=== PATIENT | female | born 2000 | race American Indian/Alaskan Native ===

== ENCOUNTER 2021-07-29 18:36 | Emergency (ER) | payer SELFPAY ==
[2021-07-29 19:10] LABS: HCG Qualitative,Urine Negative (Negative)
[2021-07-29 19:12] LABS: Bilirubin,Urine NEG (Negative); Blood,Urine MOD (Negative); Color,Urine Yellow (Yellow); Mucus,Urine FEW /HPF; Protein,Urine <15 mg/dL mg/dL (Negative); Urobilinogen,Urine < 2.0 mg/dL (<2.0)
[2021-07-29 19:35] LABS: Basophils # (Auto) 0.1 K/mm3 (0.0-0.1); Basophils % (Auto) 1.4 % (0.0-1.8); Eosinophils % (Auto) 0.3 % (0.0-4.3); Hematocrit 42.1 % (30.3-42.9); Hemoglobin 13.2 gm/dl (10.1-14.3); Lymphocytes # (Auto) 1.4 K/mm3 (1.2-5.4); Lymphocytes % (Auto) 14.7 % (13.4-35.0); Mean Corpuscular HGB Conc 31 % (30-34); Mean Corpuscular Volume 85 fl (79-97); Monocytes # (Auto) 0.4 K/mm3 (0.0-0.8); Monocytes % (Auto) 4.6 % (0.0-7.3); Platelet Count 219 K/mm3 (140-440); Red Blood Count 4.96 M/mm3 (3.65-5.03); Red Cell Distribution Width 14.3 % (13.2-15.2)
--- NOTE | 2021-07-29 19:41 | Emergency Department Report ---
ED General Adult HPI - General Chief complaint: Abdominal Pain Stated complaint: BAD STOMACH PAIN AND DIARRHEA Time Seen by Provider: 07/29/21 19:02 Source: patient Mode of arrival: Ambulatory Limitations: No Limitations - History of Present Illness Initial comments: Patient presents to the emergency department the chief complaint of diarrhea and abdominal cramping that started today. Patient denies any blood in the stool and also denies any nausea vomiting. 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 Patient states that a couple days ago she ate some meatballs and is concerned that this may have caused her diarrhea. She denies any lucas abdominal pain, chest pain, shortness of breath. There is no blood in the stool. -: Sudden Severity scale (0 -10): 1 Quality: other (Cramping) Consistency: constant Improves with: none Worsens with: none Associated Symptoms: denies other symptoms Treatments Prior to Arrival: none - Related Data Previous Rx's Medication Instructions Recorded Last Taken Type Loperamide HCl [Imodium A-D] 2 mg PO BID #10 capsule 07/29/21 Unknown Rx Promethazine [Phenergan TAB] 25 mg PO Q6HR PRN #20 tab 07/29/21 Unknown Rx Allergies Allergy/AdvReac Type Severity Reaction Status Date / Time No Known Allergies Allergy Unverified 07/29/21 18:50 ED Review of Systems ROS: Stated complaint: BAD STOMACH PAIN AND DIARRHEA Other details as noted in HPI Comment: All other systems reviewed and negative Constitutional: denies: chills, fever Eyes: denies: eye pain, eye discharge, vision change ENT: denies: ear pain, throat pain Respiratory: denies: cough, shortness of breath, wheezing Cardiovascular: denies: chest pain, palpitations Endocrine: no symptoms reported Gastrointestinal: abdominal pain, diarrhea. denies: nausea Genitourinary: denies: urgency, dysuria, discharge Musculoskeletal: denies: back pain, joint swelling, arthralgia Skin: denies: rash, lesions Neurological: denies: headache, weakness, paresthesias Psychiatric: denies: anxiety, depression Hematological/Lymphatic: denies: easy bleeding, easy bruising ED Past Medical Hx - Past Medical History Previous Medical History?: No - Surgical History Past Surgical History?: No - Medications Home Medications: Home Medications Medication Instructions Recorded Confirmed Last Taken Type Loperamide HCl [Imodium A-D] 2 mg PO BID #10 capsule 07/29/21 Unknown Rx Promethazine [Phenergan TAB] 25 mg PO Q6HR PRN #20 tab 07/29/21 Unknown Rx ED Physical Exam - General Limitations: No Limitations General appearance: alert, in no apparent distress - Head Head exam: Present: atraumatic, normocephalic - Eye Eye exam: Present: normal appearance, PERRL, EOMI - ENT ENT exam: Present: mucous membranes moist - Neck Neck exam: Present: normal inspection - Respiratory Respiratory exam: Present: normal lung sounds bilaterally. Absent: respiratory distress - Cardiovascular Cardiovascular Exam: Present: regular rate, normal rhythm. Absent: systolic murmur, diastolic murmur, rubs, gallop - GI/Abdominal GI/Abdominal exam: Present: soft, normal bowel sounds. Absent: distended, te nderness - Extremities Exam Extremities exam: Present: normal inspection - Back Exam Back exam: Present: normal inspection - Neurological Exam Neurological exam: Present: alert, oriented X3, CN II-XII intact. Absent: motor sensory deficit - Psychiatric Psychiatric exam: Present: normal affect, normal mood - Skin Skin exam: Present: warm, dry, intact, normal color. Absent: rash ED Course Vital Signs 07/29/21 18:51 Temperature 98.3 F Pulse Rate 134 H Respiratory 16 Rate Blood Pressure 155/81 [Right] O2 Sat by Pulse 100 Oximetry ED Medical Decision Making - Lab Data Result diagrams: 07/29/21 19:20 07/29/21 19:20 Lab Results 07/29/21 07/29/21 07/29/21 Range/Units 19:20 19:20 Unknown WBC 9.4 (4.5-11.0) K/mm3 RBC 4.96 (3.65-5.03) M/mm3 Hgb 13.2 (10.1-14.3) gm/dl Hct 42.1 (30.3-42.9) % MCV 85 (79-97) fl MCH 27 L (28-32) pg MCHC 31 (30-34) % RDW 14.3 (13.2-15.2) % Plt Count 219 (140-440) K/mm3 Lymph % (Auto) 14.7 (13.4-35.0) % [place] % (Auto) 4.6 (0.0-7.3) % Eos % (Auto) 0.3 (0.0-4.3) % Baso % (Auto) 1.4 (0.0-1.8) % Lymph # (Auto) 1.4 (1.2-5.4) K/mm3 [place] # (Auto) 0.4 (0.0-0.8) K/mm3 Eos # (Auto) 0.0 (0.0-0.4) K/mm3 Baso # (Auto) 0.1 (0.0-0.1) K/mm3 Seg Neutrophils % 79.0 H (40.0-70.0) % Seg Neutrophils # 7.4 (1.8-7.7) K/mm3 Sodium 139 (137-145) mmol/L Potassium 4.5 (3.6-5.0) mmol/L Chloride 102.9 (98-107) mmol/L Carbon Dioxide 21 L (22-30) mmol/L Anion Gap 20 mmol/L BUN 15 (7-17) mg/dL Creatinine 0.7 (0.6-1.2) mg/dL Estimated GFR > 60 ml/min BUN/Creatinine Ratio 21 % Glucose 95 (65-100) mg/dL Calcium 9.8 (8.4-10.2) mg/dL Urine Color Yellow (Yellow) Urine Turbidity Clear (Clear) Urine pH 6.0 (5.0-7.0) Ur Specific [place] 1.018 (1.003-1.030) Urine Protein <15 mg/dl (Negative) mg/dL Urine Glucose (UA) Neg (Negative) mg/dL Urine Ketones Neg (Negative) mg/dL Urine Blood Mod (Negative) Urine Nitrite Neg (Negative) Ur Reducing Substances Not Reportable Urine Bilirubin Neg (Negative) Urine Ictotest Not Reportable Urine Urobilinogen < 2.0 (<2.0) mg/dL Ur Leukocyte Esterase Neg (Negative) Urine WBC (Auto) 1.0 (0.0-6.0) /HPF Urine RBC (Auto) 7.0 (0.0-6.0) /HPF U Epithel Cells (Auto) 1.0 (0-13.0) /HPF Urine Mucus Few /HPF Urine HCG, Qual Negative (Negative) - Medical Decision Making There is documentation of the patient's heart rate is 134 bpm but on my exam upon auscultation the patient's heart rate is 80 bpm Critical care attestation.: If time is entered above; I have spent that time in minutes in the direct care of this critically ill patient, excluding procedure time. ED Disposition Clinical Impression: Diarrhea Disposition: HOME / SELF CARE / HOMELESS Is pt being admited?: No Does the pt Need Aspirin: No Condition: Stable Instructions: Diarrhea, Adult, Abdominal Pain (ED) Additional Instructions: RETURN IF WORSE Prescriptions: Loperamide HCl [Imodium A-D] 2 mg PO BID #10 capsule Promethazine [Phenergan TAB] 25 mg PO Q6HR PRN #20 tab PRN Reason: Nausea Referrals: PRIMARY CAREMD [Primary Care Provider] - 3-5 Days MARIBEL ELIZABETH MD [Staff Physician] - 3-5 Days Forms: Work/School Release Form(ED) Time of Disposition: 20:13
[2021-07-29 19:48] LABS: Blood Urea Nitrogen 15 mg/dL (7-17); Calcium 9.8 mg/dL (8.4-10.2); Hemolysis Index 40
[2021-07-29 19:55] LABS: BUN/Creatinine Ratio 21
--- NOTE | 2021-07-29 20:28 | XRay Report ---
ABDOMEN 3 VIEW(S) INDICATION / CLINICAL INFORMATION: diarrhea and abdominal pain. COMPARISON: None available. FINDINGS: TUBES / LINES: None. BOWEL GAS PATTERN: No significant abnormality. FREE AIR / EXTRALUMINAL GAS: None seen. ADDITIONAL FINDINGS: No significant additional findings. CHEST: Visualized chest shows no significant abnormality. IMPRESSION: 1. No significant abnormality. Signer Name: Kevyn Perez DO Signed: 07/29/2021 8:23 PM Workstation Name: [id number]
[2021-07-29 20:34] VITALS: BP 132/88
== END 2021-07-29 20:34 | disposition home or self-care (01) ==
LOC: EDBD → ED 18:36
DX: R19.7 Diarrhea, unspecified (principal); R10.30 Lower abdominal pain, unspecified
CPT/HCPCS: 36415; 74022; 80048; 81001; 81025; 85025; 99283

== ENCOUNTER 2021-11-18 11:44 | Emergency (ER) | payer MEDICAID ==
[2021-11-18 14:35] LABS: Bacteria,Urine 3+ /HPF (Negative); Mucus,Urine FEW /HPF
[2021-11-18 14:49] LABS: Color,Urine Straw (Yellow)
[2021-11-18 14:53] LABS: Bilirubin,Urine Negative (Negative)
[2021-11-18 14:54] LABS: Blood,Urine Small (Negative); HCG Qualitative,Urine Negative (Negative); Protein,Urine <15 mg/dL mg/dL (Negative); Urobilinogen,Urine < 2.0 mg/dL (<2.0)
--- NOTE | 2021-11-18 16:56 | Emergency Department Report ---
ED Female HPI - General Chief complaint: Urogenital-Female Stated complaint: PAIN AFTER PEEING Time Seen by Provider: 11/18/21 16:21 Source: patient Mode of arrival: Ambulatory Limitations: No Limitations - History of Present Illness Initial comments: 21-year-old black female with no past medical history presents to the emergency department for evaluation of 2-day history of dysuria. She denies fever, abdominal pain, and vaginal discharge. Complaint: dysuria -: Gradual, days(s) Location: suprapubic (1) Severity: mild Severity scale (0 -10): 2 Quality: aching Consistency: intermittent Worsens with: urination Are you Now?: No Associated Symptoms: dysuria. denies: vaginal discharge, vaginal bleeding, abdominal pain, nausea/vomiting, fever/chills, headaches, loss of appetite, hematuria, rash, seizure, shortness of breath, syncope, weakness - Related Data Previous Rx's Medication Instructions Recorded Last Taken Type Loperamide HCl [Imodium A-D] 2 mg PO BID #10 capsule 07/29/21 Unknown Rx Promethazine [Phenergan TAB] 25 mg PO Q6HR PRN #20 tab 07/29/21 Unknown Rx Phenazopyridine [Pyridium] 200 mg PO BID #6 tab 11/18/21 Unknown Rx cephALEXin [Keflex] 500 mg PO Q12HR #14 cap 11/18/21 Unknown Rx Allergies Allergy/AdvReac Type Severity Reaction Status Date / Time No Known Allergies Allergy Unverified 07/29/21 18:50 ED Review of Systems ROS: Stated complaint: PAIN AFTER PEEING Other details as noted in HPI Comment: All other systems reviewed and negative Constitutional: denies: chills, fever Respiratory: denies: shortness of breath Cardiovascular: denies: chest pain, palpitations Gastrointestinal: denies: abdominal pain, nausea, vomiting Musculoskeletal: denies: back pain Neurological: denies: headache, weakness, numbness, paresthesias ED Past Medical Hx - Medications Home Medications: Home Medications Medication Instructions Recorded Confirmed Last Taken Type Loperamide HCl [Imodium A-D] 2 mg PO BID #10 capsule 07/29/21 Unknown Rx Promethazine [Phenergan TAB] 25 mg PO Q6HR PRN #20 tab 07/29/21 Unknown Rx Phenazopyridine [Pyridium] 200 mg PO BID #6 tab 11/18/21 Unknown Rx cephALEXin [Keflex] 500 mg PO Q12HR #14 cap 11/18/21 Unknown Rx ED Physical Exam - General Limitations: No Limitations General appearance: alert, in no apparent distress - Head Head exam: Present: atraumatic, normocephalic - Eye Eye exam: Present: normal appearance. Absent: conjunctival injection - Neck Neck exam: Present: normal inspection. Absent: tenderness - Respiratory Respiratory exam: Present: normal lung sounds bilaterally. Absent: respiratory distress - Cardiovascular Cardiovascular Exam: Present: regular rate, normal heart sounds - GI/Abdominal GI/Abdominal exam: Present: soft, normal bowel sounds. Absent: distended, guarding, rebound, rigid - Extremities Exam Extremities exam: Present: normal inspection - Back Exam Back exam: Present: normal inspection. Absent: CVA tenderness (R), CVA tenderness (L) - Neurological Exam Neurological exam: Present: alert, oriented X3 - Psychiatric Psychiatric exam: Present: normal affect, normal mood - Skin Skin exam: Present: warm, dry, intact, normal color ED Course Vital Signs 11/18/21 11/18/21 12:33 17:04 Temperature 98.5 F Pulse Rate 67 70 Respiratory 16 16 Rate Blood Pressure 123/53 118/70 [Left] O2 Sat by Pulse 99 100 Oximetry ED Medical Decision Making - Medical Decision Making 21-year-old black female with no past medical history presents to the emergency department for evaluation of 2-day history of dysuria. She denies fever, abdominal pain, and vaginal discharge. Urine positive for urinary tract infection. She will be treated with 7-day course of 500 mg Keflex twice daily along with Pyridium twice a day for 3 days. She is advised to take medication as prescribed and follow-up with primary care provider if no improvement or worsening symptoms. She verbalized understanding of and agreement with plan of care. Critical care attestation.: If time is entered above; I have spent that time in minutes in the direct care of this critically ill patient, excluding procedure time. ED Disposition Clinical Impression: UTI (urinary tract infection) Qualifiers: Urinary tract infection type: acute cystitis Hematuria presence: with hematuria Qualified Code(s): N30.01 - Acute cystitis with hematuria Disposition: HOME / SELF CARE / HOMELESS Is pt being admited?: No Does the pt Need Aspirin: No Condition: Stable Instructions: Antibiotic Medicine, Adult, [id number], Urinary Tract Infection, Adult, [id number] Additional Instructions: Take medications as prescribed. Drink plenty of noncaffeinated fluids. Follow- up with primary care provider if no improvement or worsening symptoms. Prescriptions: cephALEXin [Keflex] 500 mg PO Q12HR #14 cap Phenazopyridine [Pyridium] 200 mg PO BID #6 tab Referrals: NEO RUIZ MD [Referring] - 3-5 Days Time of Disposition: 16:56
[2021-11-18 17:05] VITALS: BP 118/70
== END 2021-11-18 17:05 | disposition home or self-care (01) ==
LOC: ED 11:44
DX: N39.0 Urinary tract infection, site not specified (principal)
CPT/HCPCS: 81001; 81025; 87076; 87086; 87186; 99283